=== PATIENT | female | born 1935 | race Caucasian/White ===

== ENCOUNTER 2017-04-15 07:35 | Inpatient (IN) | payer OTHER, MEDICARE ==
[~2017-04-15] VITALS: Ht 160 cm; Wt 82.4 kg
[~2017-04-15 07:35] MED LIST: ASPI325T PO; ATOR40TA16 PO; CYCL5TAB PO; GABA400C5 PO; MEDR4PAK PO; MOBI7.5T PO; OMEP20TA PO; PRAM0.12 PO; TRAZ100T4 PO; VENL75TA2 PO
[2017-04-15 07:42] VITALS: BP 145/71; PULSE 99; RESP 18; TEMP 103.1; O2SAT 96
--- NOTE | 2017-04-15 07:47 | PD ---
HPI Chief Complaint: fever, total body pain Time Seen by Provider: 07:46 Travel History International Travel<30 days: No Contact w/Intl Traveler<30days: No History of Present Illness HPI 81-year-old female arrives to the ER reported total body pain. The total body pain is constant however it became worse overnight. Fever was measured upon the patient's arrival to the ER. She denies vomiting. She denies cough. Her is present in the room however cannot provide additional information at the time of patient's arrival. In this scenario the initial history somewhat limited due to patient discomfort with or without altered mentation due to infection and/or and/or metabolic abnormality and/or polypharmacy. PFSH Past Medical History Arthritis: Yes Asthma: No Atrial Fibrillation: Yes Autoimmune Disease: Yes (fibromyalgia ) Blood Disorders: No Anxiety: Yes Depression: Yes Heart Rhythm Problems: Yes (AFIB) Cancer: No Cardiovascular Problems: Yes High Cholesterol: No Chemotherapy: No Chest Pain: Yes Congestive Heart Failure: No COPD: Yes Cerebrovascular Accident: No Diabetes: Yes Diminished Hearing: No Deep Vein Thrombosis: Yes Endocrine: No Fibromyalgia: Yes Gastrointestinal Disorders: Yes GERD: Yes Glaucoma: No Genitourinary: No Headaches: Yes Hepatitis: No Hiatal Hernia: No Hypertension: No Immune Disorder: No Kidney Stones: No Musculoskeletal: Yes Neurologic: Yes Psychiatric: No Reproductive: No Respiratory: Yes Immunizations Current: Yes Migraines: Yes Myocardial Infarction: No Radiation Therapy: No Renal Failure: No Seizures: No Sickle Cell Disease: No Sleep Apnea: No Thyroid Disease: No Ulcer: No PNEUMOCCOCAL Vaccine (Year): 1 Menopausal: Yes Past Surgical History Abdominal Surgery: Yes (MAGALY) AICD: No Appendectomy: Yes Arteriovenous Shunt: No Body Medical Devices: YIN FILTER Cardiac Surgery: Yes (YIN FILTER) Cholecystectomy: Yes Ear Surgery: No Endocrine Surgery: No Eye Surgery: No Genitourinary Surgery: No Gynecologic Surgery: Yes (HYSTERECTOMY) Hysterectomy: Yes Insulin Pump: No Joint Replacement: No Neurologic Surgery: No Oral Surgery: No Pacemaker: No Thoracic Surgery: No Tonsillectomy: Yes Other Surgery: Yes (yin filter inserted) Social History Alcohol Use: No Tobacco Use: No Substance Use: No Allergies-Medications (Allergen,Severity, Reaction): Coded Allergies: tramadol (Unverified Adverse Reaction, Intermediate, nausea, 8/15/17) Reported Meds & Prescriptions Reported Meds & Active Scripts Active Flexeril (Cyclobenzaprine HCl) 5 Mg Tab 5 Mg PO Q12HR PRN Reported Mobic (Meloxicam) 7.5 Mg Tab 7.5 Mg PO BID Aspirin 325 Mg Tab 325 Mg PO DAILY Venlafaxine ER 24 HR (Venlafaxine HCl) 75 Mg Tab 75 Mg PO BID Atorvastatin (Atorvastatin Calcium) 40 Mg Tab 40 Mg PO HS Omeprazole 20 Mg Tab 20 Mg PO BID Gabapentin 400 Mg Cap 400 Cap PO TID Review of Systems ROS Limitations: Clinical Condition Physical Exam Narrative GENERAL: 81 yo F, mild distress 2/2 pain and or anxiety, WNWD, speaking in sentences SKIN: Warm and dry. HEAD: Atraumatic. Normocephalic. EYES: Pupils equal and round. No scleral icterus. No injection or drainage. ENT: No nasal bleeding or discharge. Mucous membranes pink and moist. NECK: Trachea midline. No JVD. CARDIOVASCULAR: Tachycardia. Regular rhythm. RESPIRATORY: Mild tachypnea. Course breath sounds. GASTROINTESTINAL: Abdomen soft, non-tender, nondistended. Hepatic and splenic margins not palpable. MUSCULOSKELETAL: Extremities without clubbing, cyanosis, or edema. No obvious deformities. NEUROLOGICAL: Awake and alert. No obvious cranial nerve deficits. Motor grossly within normal limits. Five out of 5 muscle strength in the arms and legs. Normal speech. PSYCHIATRIC: Mildly anxious. Appropriate seasonal attire. Data Data Last Documented VS Vital Signs Date Time Temp Pulse Resp B/P (MAP) Pulse Ox O2 Delivery O2 Flow Rate FiO2 04/15/17 07:50 93 Nasal Cannula 2.00 04/15/17 07:50 22 04/15/17 07:50 04/15/17 07:42 103.1 99 VS reviewed Orders Orders Electrocardiogram (04/15/17 07:50) Complete Blood Count With Diff (04/15/17 07:50) Comprehensive Metabolic Panel (04/15/17 07:50) Prothrombin Time / Inr (Pt) (04/15/17 07:50) Act Partial Throm Time (Ptt) (04/15/17 07:50) Lactic Acid Sepsis Protocol (04/15/17 07:50) Magnesium (Mg) (04/15/17 07:50) Lipase (04/15/17 07:50) Ckmb (Isoenzyme) Profile (04/15/17 07:50) Troponin I (04/15/17 07:50) Urinalysis - C+S If Indicated (04/15/17 07:50) Blood Culture (04/15/17 07:50) Chest, Single Ap (04/15/17 07:50) Blood Glucose (04/15/17 07:50) Ecg Monitoring (04/15/17 07:50) Iv Access Insert/Monitor (04/15/17 07:50) Oximetry (04/15/17 07:50) Oxygen Administration (04/15/17 07:50) Acetaminophen (Tylenol) (04/15/17 08:00) Hydromorphone Pf Inj (Dilaudid Pf Inj) (04/15/17 08:00) Vancomycin Inj (Vancomycin Inj) (04/15/17 07:50) Cefepime Inj (Maxipime Inj) (04/15/17 07:50) Sodium Chlor 0.9% 1000 Ml Inj (Ns 1000 M (04/15/17 07:50) Sodium Chlor 0.9% 1000 Ml Inj (Ns 1000 M (04/15/17 07:50) Sodium Chlor 0.9% 1000 Ml Inj (Ns 1000 M (04/15/17 07:50) CKMB (04/15/17 08:05) CKMB% (04/15/17 08:05) Cath For Specimen (04/15/17 08:46) Admit Order (Ed Use Only) (04/15/17 09:35) Labs Laboratory Tests Test 04/15/17 08:00 04/15/17 08:05 Urine Collection Type CATH Urine Color YELLOW Urine Turbidity CLEAR Urine pH 5.5 Urine Specific [place] 1.013 Urine Protein NEG mg/dL Urine Glucose (UA) NEG mg/dL Urine Ketones NEG mg/dL Urine Occult Blood TRACE Urine Nitrite NEG Urine Bilirubin NEG Urine Leukocyte Esterase NEG Urine RBC 0-3 /hpf Urine Renal Epithelial Cells 0-5 /hpf Microscopic Urinalysis Comment CATH-CULT NOT IND Urine Collection Time 08:00 White Blood Count 10.1 TH/MM3 Red Blood Count 4.18 MIL/MM3 Hemoglobin 10.8 GM/DL Hematocrit 33.9 % Mean Corpuscular Volume 81.2 FL Mean Corpuscular Hemoglobin 25.9 PG Mean Corpuscular Hemoglobin Concent 31.9 % Red Cell Distribution Width 14.7 % Platelet Count 230 TH/MM3 Mean Platelet Volume 7.7 FL Neutrophils (%) (Auto) 74.9 % Lymphocytes (%) (Auto) 16.6 % Monocytes (%) (Auto) 5.3 % Eosinophils (%) (Auto) 2.6 % Basophils (%) (Auto) 0.6 % Neutrophils # (Auto) 7.5 TH/MM3 Lymphocytes # (Auto) 1.7 TH/MM3 Monocytes # (Auto) 0.5 TH/MM3 Eosinophils # (Auto) 0.3 TH/MM3 Basophils # (Auto) 0.1 TH/MM3 CBC Comment DIFF FINAL Differential Comment Prothrombin Time 11.6 SEC Prothromb Time International Ratio 1.0 RATIO Activated Partial Thromboplast Time 22.9 SEC Blood Urea Nitrogen 14 MG/DL Creatinine 0.82 MG/DL Random Glucose 167 MG/DL Total Protein 6.8 GM/DL Albumin 3.2 GM/DL Calcium Level 8.7 MG/DL Magnesium Level 1.4 MG/DL Alkaline Phosphatase 118 U/L Aspartate Amino Transf (AST/SGOT) 35 U/L Alanine Aminotransferase (ALT/SGPT) 27 U/L Total Bilirubin 0.3 MG/DL Sodium Level 137 MEQ/L Potassium Level 4.0 MEQ/L Chloride Level 100 MEQ/L Carbon Dioxide Level 29.2 MEQ/L Anion Gap 8 MEQ/L Estimat Glomerular Filtration Rate 67 ML/MIN Lactic Acid Level 2.8 mmol/L Total Creatine Kinase 122 U/L Creatine Kinase MB LESS THAN 0.5 NG/ML Troponin I 0.02 NG/ML Lipase 61 U/L MDM Medical Decision Making Medical Screen Exam Complete: Yes Emergency Medical Condition: Yes Medical Record Reviewed: Yes Differential Diagnosis Sepsis, UTI, PNA, severe sepsis, MODS, chronic pain Narrative Course CBC & BMP Diagram 04/15/17 08:05 Total Protein 6.8, Albumin 3.2 L, Calcium Level 8.7, Magnesium Level 1.4 L, Alkaline Phosphatase 118 H, Aspartate Amino Transf (AST/SGOT) 35, Alanine Aminotransferase (ALT/SGPT) 27, Total Bilirubin 0.3 LA 2.8 Tn 0.02 Lipase normal EKG: sinus, rate 94, normal axis, AL interval 221 Last 24 hours Impressions Chest X-Ray 04/15/17 0750 Signed Impressions: Service Date/Time: Saturday, April 15, 2017 07:54 - CONCLUSION: Development of course and bronchovascular markings right lung base consistent with infiltrate Hugo Baldwin MD Cefepime and vancomycin started. The patient has a pneumonia. She meets severe sepsis criteria. Case d/w Dr Conte for [facility]. Pt notified of plan for admission and is agreeable with it. Sepsis Criteria SIRS Criteria (2 or more): Temp > 100.9 or < 96.8, Heart rate over 90 Sepsis Criteria (SIRS+source): Infect source susp/known Severe Sepsis (+one): Lactate >2 Diagnosis Primary Impression: Severe sepsis Additional Impressions: Pneumonia Qualified Codes: J18.9 - Pneumonia, unspecified organism Chronic pain Qualified Codes: G89.29 - Other chronic pain Admitting Information Admitting Physician Requests: Admit Filiberto Mejia MD Apr 15, 2017 07:47
[2017-04-15 07:50] VITALS: O2SAT 93
[2017-04-15] MEDS ORDERED: SODIUM CHLOR 0.9% 1000 ML INJ 400 ML IV ONE (07:50)
[2017-04-15] MEDS ORDERED: CEFEPIME INJ 2,000 MG in SODIUM CHLORIDE 0.9% INJ 100 ML IV STA (07:50)
[2017-04-15] MEDS ORDERED: VANCOMYCIN INJ 1,500 MG in SODIUM CHLORID 0.9% 500 ML INJ 500 ML IV STA (07:50)
[2017-04-15] MEDS ORDERED: SODIUM CHLOR 0.9% 1000 ML INJ 1,000 ML IV ONE ×2 (07:50)
[2017-04-15] MEDS ORDERED: ACETAMINOPHEN 325 MG TAB PO ONE (08:00)
[2017-04-15] MEDS ORDERED: HYDROmorphone HCL PF 1 MG/ML VIAL IV ONE (08:00)
[2017-04-15 08:25] LABS: AUTOMATED NEUTROPHIL # 7.5 TH/MM3 (1.8-7.7); BASOPHIL # 0.1 TH/MM3 (0-0.2); BASOPHIL % 0.6 % (0.0-2.0); EOSINOPHIL # 0.3 TH/MM3 (0-0.4); EOSINOPHIL % 2.6 % (0.0-4.0); HEMATOCRIT 33.9 % (35.0-46.0); HEMO FLAGS DIFF FINAL; LYMPH % 16.6 % (9.0-44.0); LYMPHOCYTE # 1.7 TH/MM3 (1.0-4.8); MEAN CELL VOLUME 81.2 FL (80.0-100.0); MEAN CORPUSCULAR HEMOGLOBIN 25.9 PG (27.0-34.0); MEAN CORPUSCULAR HGB CONC 31.9 % (32.0-36.0); MONO % 5.3 % (0.0-8.0); NEUT % 74.9 % (16.0-70.0); PLATELET COUNT 230 TH/MM3 (150-450); RED BLOOD COUNT 4.18 MIL/MM3 (4.00-5.30); RED CELL DISTRIBUTION WIDTH 14.7 % (11.6-17.2); WHITE BLOOD COUNT 10.1 TH/MM3 (4.0-11.0)
--- NOTE | 2017-04-15 08:27 | RADRPT ---
EXAM DATE/TIME: 04/15/2017 07:54 [facility] COMPARISON: CHEST SINGLE AP, October 28, 2015, 17:17. INDICATIONS : Short of breath. MEDICAL HISTORY : Chronic obstructive pulmonary disease. Diabetes mellitus type II. SURGICAL HISTORY : None. ENCOUNTER: Initial ACUITY: 1 day PAIN SCORE: 0/10 LOCATION: Bilateral chest FINDINGS: There is atherosclerotic unwinding of the aorta and left ventricular cardiomegaly. Nodular density le ft upper lobe is unchanged. Patient has developed a coarsening of bronchovascular markings in the rig ht lung base consistent with infiltrate CONCLUSION: Development of course and bronchovascular markings right lung base consistent with infiltrate Hugo Baldwin MD on April 15, 2017 at 8:24 Board Certified Radiologist. This report was verified electronically.
[2017-04-15 08:29] LABS: CHLORIDE 100 MEQ/L (98-107); SODIUM (NA) 137 MEQ/L (136-145)
[2017-04-15 08:33] LABS: ANION GAP 8 MEQ/L (5-15); APTT (PATIENT) 22.9 SEC (24.3-30.1); BICARBONATE 29.2 MEQ/L (21.0-32.0); BLOOD UREA NITROGEN 14 MG/DL (7-18); MAGNESIUM 1.4 MG/DL (1.5-2.5); PROTHROMBIN TIME - PATIENT 11.6 SEC (9.8-11.6)
[2017-04-15 08:36] LABS: ALT (GPT) 27 U/L (10-53); AST (GOT) 35 U/L (15-37); GLOMERULAR FILTRATION RATE 67 ML/MIN (>89)
[2017-04-15 08:37] LABS: TOTAL BILIRUBIN ADULT 0.3 MG/DL (0.2-1.0)
[2017-04-15 08:39] LABS: ALKALINE PHOSPHATASE 118 U/L (45-117); CREATINE KINASE 122 U/L (26-192)
[2017-04-15 08:51] LABS: CKMB LESS THAN 0.5 NG/ML (0.5-3.6)
[2017-04-15 09:01] LABS: BLOOD, URINE TRACE (NEG); GLUCOSE,URINE NEG (NEG); KETONE, URINE NEG (NEG); NITRITE,URINE NEG (NEG); PH, URINE 5.5 (5.0-8.5)
[2017-04-15 09:10] LABS: METHOD OF COLLECTION CATH; URINE COLOR YELLOW (YELLW/STRAW)
[2017-04-15 09:11] LABS: COMMENT (UR) CATH-CULT NOT IND; CULTURE IF INDICATED CATH CULTURE NOT IND; RBC, URINE 0-3 /hpf (0-3); RENAL EPITHELIAL CELLS 0-5 /hpf
[2017-04-15] MEDS ORDERED: MAGNESIUM HYDROXIDE SUSP 30 ML CUP PO PRN (10:00)
[2017-04-15] MEDS ORDERED: SODIUM CHLORIDE 0.9% FLUSH 10 ML FLUSH IV FLUSH PRN (10:00)
[2017-04-15] MEDS ORDERED: ONDANSETRON HCL 4 MG/2 ML VIAL IVP PRN (10:00)
[2017-04-15] MEDS ORDERED: LACTULOSE SYRUP 20 GM/30 ML CUP PO PRN (10:00)
[2017-04-15] MEDS ORDERED: NALOXONE HCL 0.4 MG/ML AMP IV PRN (10:00)
[2017-04-15] MEDS ORDERED: BISACODYL 10 MG SUPP RECTAL PRN (10:00)
[2017-04-15] MEDS ORDERED: SENNOSIDES 8.6 MG TAB PO PRN (10:00)
[2017-04-15 10:16] LABS: LACTIC ACID GHOST NOT REPORTABLE
[2017-04-15 10:45] VITALS: BP 102/56; PULSE 95; RESP 18; TEMP 100; O2SAT 95
[2017-04-15 10:49] LABS: BLOOD GAS BASE EXCESS 0.7 mmol/L (-2-2); BLOOD GAS CARBOXYHEMOGLOBIN 1.5 % (0-4); BLOOD GAS HCO3 25 mmol/L (22-26); BLOOD GAS O2 HGB SATURATION 93 % (90-100); BLOOD GAS OXYGEN CONTENT 12.5 Vol % (12.0-20.0); BLOOD GAS PCO2 40 mmHG (38-42); BLOOD GAS PO2 76 mmHG (61-120); BLOOD GAS TOTAL HGB 9.5 G/DL (12.0-16.0); CRITICAL VALUE NO; DRAW SITE RT RADIAL; FIO2 21 %; NUMBER OF ARTERIAL PUNCTURES 1; OXYGEN DEVICE ROOM AIR; STAT NO; TEMP CORR TO 98.6; ULNAR PULSE PRESENT
[2017-04-15] MEDS ORDERED: HEPARIN SODIUM - SQ 10,000 UNITS/ML VIAL SQ SCH (11:00)
[2017-04-15] MEDS: SODIUM CHLOR 0.9% 1000 ML INJ 1,000 ML IV SCH ×2 (11:59→19:48)
[2017-04-15] MEDS: AZITHROMYCIN INJ 500 MG in SODIUM CHLOR 0.9% 250 ML INJ 250 ML IV SCH (12:00)
[2017-04-15] MEDS: cefTRIAXone INJ 1,000 MG in SODIUM CHLORIDE 0.9% INJ 100 ML IV SCH (13:14)
[2017-04-15 13:49] VITALS: BP 119/58; PULSE 76; RESP 16; TEMP 99; O2SAT 94
[2017-04-15] MEDS ORDERED: TRAZ100T6 PO (14:24)
[2017-04-15] MEDS ORDERED: ROPI0.25 PO (14:24)
[2017-04-15] MEDS ORDERED: PRAM0.12 PO (14:24)
[2017-04-15] MEDS ORDERED: LEVO75TA3 PO (14:24)
--- NOTE | 2017-04-15 17:14 | HHI.HP ---
[facility] Service [facility] Primary Care Physician Unknown Admission Diagnosis Severe Sepsis From PNA Diagnoses: (1) Severe sepsis Diagnosis: Principal (2) Pneumonia Diagnosis: Principal (3) Diarrhea Diagnosis: Principal (4) Hypomagnesemia Diagnosis: Principal (5) Thrush Diagnosis: Principal (6) Chronic pain Diagnosis: Principal Chief Complaint: "sick about a week" Travel History International Travel<30 Days: No Contact w/Intl Traveler <30 Da: No Traveled to Known Affected Are: No Sepsis Criteria SIRS Criteria (2 or more): Temp > 100.9 or < 96.8, Heart rate over 90, RR > 20 or PaCO2 < 32 Sepsis Criteria (SIRS+source): Infect source susp/known Severe Sepsis (+one): Lactate >2 Criteria Outcome: Meets severe sepsis criteria History of Present Illness Written by Alethea Sidhu PA-C acting as scribe for Dr. Conte on 04/15/17 at ~ 1640. 81-year-old female with history of A. 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 She admits to a nonproductive cough, shortness of breath, abdominal pain, diarrhea which all started one week ago. She believes all started when she visited her son who is sick in the hospital. She states both of her legs have been hurting. She additionally states she has had intermittent choking spells stating she could not eat. She denies any nausea or vomiting. She states she's had 2-3 episodes of diarrhea per day. Denies any blood in the stool. She denies any fevers. She states she did not take any of her medications for 3 days. Somewhat of a poor historian. Patient has a [place] filter but cannot tell me why she could not have anticoagulation, but EMR indicates she has history of GI bleed. Patient sees Dr. Adames, gas distribution and emergency clerk. Review of Systems ROS Limitations: Clinical Condition, Poor Historian Except as stated in HPI: all other systems reviewed are Neg Past Family Social History Past Medical History Atrial fibrillation Multiple DVTs and pulmonary emboli Diet controlled Diabetes COPD GERD/PUD Hypothyroidism Fibromyalgia RLS Depression Past Surgical History AV federico ablation 2011 Colonoscopy showing diverticulosis of the sigmoid colon, internal hemorrhoids EGD revealing severe gastritis with ulceration 08/20/11 RLL biopsy normal pathology 2009 Cardiac catheterization with normal coronaries 2009 IVC filter placement 2002 Cholecystectomy Appendectomy Hysterectomy Tonsillectomy Reported Medications Reported Ropinirole 0.25 Mg Tab 0.25 Mg PO HS Levothyroxine (Levothyroxine Sodium) 75 Mcg Tab 75 Mcg PO DAILY Trazodone (Trazodone HCl) 100 Mg Tablet 100 Mg PO HS Pramipexole (Pramipexole Dihydrochloride) 0.125 Mg Tab 0.125 Mg PO BID Aspirin 325 Mg Tab 325 Mg PO DAILY Venlafaxine ER 24 HR (Venlafaxine HCl) 75 Mg Tab 75 Mg PO BID Atorvastatin (Atorvastatin Calcium) 40 Mg Tab 40 Mg PO HS Omeprazole 20 Mg Tab 20 Mg PO BID Gabapentin 400 Mg Cap 400 Cap PO TID Allergies: Coded Allergies: tramadol (Unverified Adverse Reaction, Intermediate, nausea, 04/05/17) Family History Mother and father of "heart" and stroke per patient. Social History Lives with who still works. Denies alcohol use. Denies tobacco use. Denies illicit drug use. Physical Exam Vital Signs Vital Signs Date Time Temp Pulse Resp B/P (MAP) Pulse Ox O2 Delivery O2 Flow Rate FiO2 04/15/17 15:15 04/15/17 13:49 99.0 76 16 119/58 (78) 94 Room Air 04/15/17 10:45 100.0 95 18 102/56 (71) 95 Room Air 04/15/17 07:50 93 Nasal Cannula 2.00 04/15/17 07:50 22 04/15/17 07:50 93 04/15/17 07:42 103.1 99 18 145/71 (95) 96 Room Air Physical Exam GENERAL: This is a well-nourished, well-developed patient appears in moderate discomfort sticking her legs off the bed. SKIN: No rashes, ecchymoses or lesions. Warm and dry. HEAD: Atraumatic. Normocephalic. EYES: No scleral icterus. No injection or drainage. ENT: Uvula midline. Airway patent. Thrush evident. NECK: Trachea midline. CARDIOVASCULAR: Regular rate and rhythm without murmurs, gallops, or rubs. RESPIRATORY: Clear to auscultation. Breath sounds equal bilaterally. No wheezes , rales, or rhonchi. GASTROINTESTINAL: Abdomen soft, non-tender, nondistended. MUSCULOSKELETAL: Tender over both lower legs. No obvious edema noted. NEUROLOGICAL: Awake and alert. Five out of 5 muscle strength in upper and lower and lower extremities. Normal speech. Laboratory Laboratory Tests Test 04/15/17 08:00 04/15/17 08:05 04/15/17 09:46 04/15/17 10:35 Urine Collection Type CATH Urine Color YELLOW Urine Turbidity CLEAR Urine pH 5.5 Urine Specific [place] 1.013 Urine Protein NEG Urine Glucose (UA) NEG Urine Ketones NEG Urine Occult Blood TRACE Urine Nitrite NEG Urine Bilirubin NEG Urine Leukocyte Esterase NEG Urine RBC 0-3 Urine Renal Epithelial Cells 0-5 Microscopic Urinalysis Comment CATH-CULT NOT IND Urine Collection Time 08:00 White Blood Count 10.1 Red Blood Count 4.18 Hemoglobin 10.8 Hematocrit 33.9 Mean Corpuscular Volume 81.2 Mean Corpuscular Hemoglobin 25.9 Mean Corpuscular Hemoglobin Concent 31.9 Red Cell Distribution Width 14.7 Platelet Count 230 Mean Platelet Volume 7.7 Neutrophils (%) (Auto) 74.9 Lymphocytes (%) (Auto) 16.6 Monocytes (%) (Auto) 5.3 Eosinophils (%) (Auto) 2.6 Basophils (%) (Auto) 0.6 Neutrophils # (Auto) 7.5 Lymphocytes # (Auto) 1.7 Monocytes # (Auto) 0.5 Eosinophils # (Auto) 0.3 Basophils # (Auto) 0.1 CBC Comment DIFF FINAL Differential Comment Prothrombin Time 11.6 Prothromb Time International Ratio 1.0 Activated Partial Thromboplast Time 22.9 Blood Urea Nitrogen 14 Creatinine 0.82 Random Glucose 167 Total Protein 6.8 Albumin 3.2 Calcium Level 8.7 Magnesium Level 1.4 Alkaline Phosphatase 118 Aspartate Amino Transf (AST/SGOT) 35 Alanine Aminotransferase (ALT/SGPT) 27 Total Bilirubin 0.3 Sodium Level 137 Potassium Level 4.0 Chloride Level 100 Carbon Dioxide Level 29.2 Anion Gap 8 Estimat Glomerular Filtration Rate 67 Lactic Acid Level 2.8 1.8 Total Creatine Kinase 122 Creatine Kinase MB LESS THAN 0.5 Troponin I 0.02 Lipase 61 B-Type Natriuretic Peptide 61 Test 04/15/17 10:40 Blood Gas Puncture Site RT RADIAL Blood Gas Patient Temperature 98.6 Blood Gas HCO3 25 Blood Gas Base Excess 0.7 Blood Gas Oxygen Saturation 93 Arterial Blood pH 7.41 Arterial Blood Partial Pressure CO2 40 Arterial Blood Partial Pressure O2 76 Arterial Blood Oxygen Content 12.5 Arterial Blood Carboxyhemoglobin 1.5 Arterial Blood Methemoglobin 1.0 Blood Gas Hemoglobin 9.5 Oxygen Delivery Device ROOM AIR Blood Gas Inspired Oxygen 21 Date/Time Source Procedure Growth Status 04/15/17 08:15 Blood Peripheral Aerobic Blood Culture Pending Received 04/15/17 08:15 Blood Peripheral Anaerobic Blood Culture Pending Received Result Diagram: 04/15/1705 04/15/17804 Imaging Last Impressions Chest X-Ray 04/15/17 075 Signed Impressions: Service Date/Time: Saturday, April 15, 2017 07:54 - CONCLUSION: Development of course and bronchovascular markings right lung base consistent with infiltrate MD Hugo Cevallos VTE Risk Assessment Caprini VTE Risk Assessment: Mod/High Risk (score >= 2) Caprini Risk Assessment Model Point Value = 1 Point Value = 2 Point Value = 3 Point Value = 5 Age 41-60 Minor surgery BMI > 25 kg/m2 Swollen legs Varicose veins or History of unexplained or recurrent spontaneous Oral contraceptives or hormone replacement Sepsis (< 1 month) Serious lung disease, including pneumonia (< 1 month) Abnormal pulmonary function Acute myocardial infarction Congestive heart failure (< 1 month) History of inflammatory bowel disease Medical patient at bed rest Age 61-74 Arthroscopic surgery Major open surgery (> 45 min) Laparoscopic surgery (> 45 min) Malignancy Confined to bed (> 72 hours) Immobilizing plaster cast Central venous access Age >= 75 History of VTE Family history of VTE Factor V Leiden Prothrombin [id number] Lupus anticoagulant Anticardiolipin antibodies Elevated serum homocysteine Heparin-induced thrombocytopenia Other congenital or acquired thrombophilia Stroke (< 1 month) Elective arthroplasty Hip, pelvis, or leg fracture Acute spinal cord injury (< 1 month) Prophylaxis Regimen Total Risk Factor Score Risk Level Prophylaxis Regimen 0-1 Low Early ambulation 2 Moderate Order ONE of the following: *Sequential Compression Device (SCD) *Heparin 5000 units SQ BID 3-4 Higher Order ONE of the following medications: *Heparin 5000 units SQ TID *Enoxaparin/Lovenox 40 mg SQ daily (WT < 150 kg, CrCl > 30 mL/min) *Enoxaparin/Lovenox 30 mg SQ daily (WT < 150 kg, CrCl > 10-29 mL/min) *Enoxaparin/Lovenox 30 mg SQ BID (WT < 150 kg, CrCl > 30 mL/min) AND/OR *Sequential Compression Device (SCD) 5 or more Highest Order ONE of the following medications: *Heparin 5000 units SQ TID (Preferred with Epidurals) *Enoxaparin/Lovenox 40 mg SQ daily (WT < 150 kg, CrCl > 30 mL/min) *Enoxaparin/Lovenox 30 mg SQ daily (WT < 150 kg, CrCl > 10-29 mL/min) *Enoxaparin/Lovenox 30 mg SQ BID (WT < 150 kg, CrCl > 30 mL/min) AND *Sequential Compression Device (SCD) Assessment and Plan Assessment and Plan 81-year-old female with: Severe sepsis: Temperature 103.1 degrees. Heart rate 99. Respiratory rate 22. Lactic acid 2.8-->1.8. Source of infection pneumonia. -Telemetry -Blood cultures 2 pending -Antibiotics. See below. -IV fluids Pneumonia: Patient admits to cough and shortness of breath for one week. Chest x -ray with infiltrate right lung base. Aside from low hemoglobin ABG normal. H/ o COPD. -Ceftriaxone 1 g IV every 24 hours -Azithromycin 500 mg IV every 24 hours -Duonebs as needed for wheezing/SOB -CTA ordered to evaluate for PE in light of SOB and history of VTE. Diarrhea: Could be due to withdrawal from medications as patient skipped her prescribed meds for 3 days. -C. diff -IVF -Monitor electrolytes Hypomagnesemia: 1.4. -IV Magnesium. -Monitor and replete as needed Thrush: Nystatin swish and swallow Chronic pain: Patient complains of bilateral lower leg pain which is chronic from RLS and body pain related to fibromyalgia. Continue home gabapentin. Other chronic medical problems include PUD/GERD, depression, HLD, hypothyroidism : Continue home meds. DVT prophylaxis: Heparin q8h. Discussed Condition With ED physician This note was transcribed by anne [Alethea Sidhu PA-C]. I, Dr. Garrett Conte personally performed the history, physical exam, and medical decision making; and confirmed the accuracy of the information in the transcribed note. Authenticated by Dr. Garrett Conte on 04/16/17 at 00:00. Physician Certification 2 Midnight Certification Type: Admission for Inpatient Services Order for Inpatient Services The services are ordered in accordance with Medicare regulations or non- Medicare payer requirements, as applicable. In the case of services not specified as inpatient-only, they are appropriately provided as inpatient services in accordance with the 2-midnight benchmark. Estimated LOS (days): 2 days is the estimated time the patient will need to remain in the hospital, assuming treatment plan goals are met and no additional complications. Post-Hospital Plan: Not yet determined Problem Qualifiers (1) Pneumonia: Qualified Codes: J18.9 - Pneumonia, unspecified organism (2) Chronic pain: Qualified Codes: G89.29 - Other chronic pain Alethea Sidhu Apr 15, 2017 17:14 Garrett Conte MD Apr 16, 2017 00:00
[2017-04-15] MEDS ORDERED: PILL SPLITTER OTHER PRN (17:45)
[2017-04-15] MEDS ORDERED: MAGNESIUM SULFATE 1 GM PREMIX 100 ML IV ONE (18:00)
[2017-04-15] MEDS ORDERED: GABAPENTIN 300 MG CAP PO SCH (18:00)
[2017-04-15] MEDS ORDERED: IOHEXOL 350 MG/ML 10 ML VIAL (for RAD DIAG) IVCONTRAST ONE (18:10)
--- NOTE | 2017-04-15 18:29 | RADRPT ---
EXAM DATE/TIME: 04/15/2017 18:01 [facility] COMPARISON: CTA CHEST W 3D RECON, August 15, 2011, 18:06. INDICATIONS : Fever. Sepsis. General weakness. IV CONTRAST: 75 cc Omnipaque 350 (iohexol) IV RADIATION DOSE: 16.49 CTDIvol (mGy) MEDICAL HISTORY : Chronic obstructive pulmonary disease. Gastroesophageal reflux disease. Deep venous thrombosis.Diabet es. SURGICAL HISTORY : Appendectomy. Cholecystectomy.Hysterectomy. ENCOUNTER: Initial ACUITY: 2 days PAIN SCALE: 0/10 LOCATION: chest TECHNIQUE: Volumetric scanning of the chest was performed using a pulmonary embolism protocol MIP images were re constructed. Using automated exposure control and adjustment of the mA and/or kV according to patien t size, radiation dose was kept as low as reasonably achievable to obtain optimal diagnostic quality images. DICOM format image data is available electronically for review and comparison. Follow-up recommendations for detected pulmonary nodules are based at a minimum on nodule size and pa tient risk factors according to Fleischner Society Guidelines. FINDINGS: PULMONARY ARTERIES: No filling defects are seen in the pulmonary arteries through the segmental level. LUNGS: Acute appearing patchy infiltrates seen in the right lung, fairly diffuse but mid and lower lung pred ominant. There is elongated 1 x 3 cm opacity of the left lung apex that is long-term stable, benign. PLEURAE: Very small left pleural effusion is present, new. No pneumothorax. MEDIASTINUM: No lymphadenopathy. Apparent left ventricular hypertrophy. There is coronary artery calcification. MUSCULOSKELETAL: Within normal limits for patient age. MISCELLANEOUS: The visualized upper abdominal organs demonstrate no acute abnormality. CONCLUSION: 1. Patchy pneumonia on the right. 2. Small left pleural effusion, nonspecific. 3. Unchanged elongated opacity of the left lung apex, benign. 4. Coronary artery calcification. 5. No pulmonary embolus. Watson Gruber MD on April 15, 2017 at 18:22 Board Certified Radiologist. This report was verified electronically.
[2017-04-15] MEDS: NYSTATIN SUSP 500,000 U/5 ML CUP SWISH-SWAL SCH ×2 (18:44→20:08)
[2017-04-15 18:45] VITALS: BP 127/78; PULSE 83; RESP 19; TEMP 98.3; O2SAT 96
[2017-04-15] MEDS ORDERED: RESP: ALBUTEROL 2.5 MG/IPRATROPIUM 0.5 MG NEB (PRN) NEB (19:00)
[2017-04-15 20:00] VITALS: BP 169/72; PULSE 88; RESP 20; TEMP 98.4; O2SAT 96
[2017-04-15] MEDS: PANTOPRAZOLE SOD 20 MG DELAYED RELEASE TAB PO SCH (20:08)
[2017-04-15] MEDS: VENLAFAXINE HCL XR 75 MG CAP PO SCH (20:08)
[2017-04-15] MEDS: SODIUM CHLORIDE 0.9% FLUSH 10 ML FLUSH IV FLUSH SCH (20:10)
[2017-04-15] MEDS: PRAMIPEXOLE DIHYDROCHLORIDE 0.25 MG TAB PO SCH (20:11)
[2017-04-15] MEDS ORDERED: traZODone HCL 100 MG TAB PO SCH (21:00)
[2017-04-15] MEDS ORDERED: ATORVASTATIN 40 MG TAB PO SCH (21:00)
[2017-04-15] MEDS: HEPARIN SODIUM - SQ 10,000 UNITS/ML VIAL SQ SCH (22:00)
[2017-04-16] VITALS: BP 175/83; PULSE 90; RESP 18; TEMP 99.1; O2SAT 96
[2017-04-16] MEDS ORDERED: ACETAMINOPHEN/HYDROcodone 325 MG/5 MG TAB PO ONE (01:00)
[2017-04-16 04:00] VITALS: BP 141/74; PULSE 86; RESP 18; TEMP 98.3; O2SAT 96
[2017-04-16] MEDS: SODIUM CHLOR 0.9% 1000 ML INJ 1,000 ML IV SCH (05:48)
[2017-04-16] MEDS ORDERED: LEVOTHYROXINE SODIUM 75 MCG TAB PO SCH (06:00)
[2017-04-16] MEDS: HEPARIN SODIUM - SQ 10,000 UNITS/ML VIAL SQ SCH ×2 (06:43→14:08)
[2017-04-16 08:00] VITALS: BP 139/82; PULSE 82; RESP 20; TEMP 97.9; O2SAT 96
[2017-04-16 08:47] LABS: AUTOMATED NEUTROPHIL # 6.2 TH/MM3 (1.8-7.7); BASOPHIL % 0.5 % (0.0-2.0); EOSINOPHIL # 0.1 TH/MM3 (0-0.4); EOSINOPHIL % 1.3 % (0.0-4.0); HEMATOCRIT 30.4 % (35.0-46.0); HEMO FLAGS DIFF FINAL; LYMPHOCYTE # 1.4 TH/MM3 (1.0-4.8); MEAN CELL VOLUME 80.3 FL (80.0-100.0); MEAN CORPUSCULAR HEMOGLOBIN 26.4 PG (27.0-34.0); MEAN CORPUSCULAR HGB CONC 32.9 % (32.0-36.0); MONO % 7.5 % (0.0-8.0); NEUT % 73.7 % (16.0-70.0); PLATELET COUNT 224 TH/MM3 (150-450); RED BLOOD COUNT 3.79 MIL/MM3 (4.00-5.30); RED CELL DISTRIBUTION WIDTH 14.2 % (11.6-17.2); WHITE BLOOD COUNT 8.3 TH/MM3 (4.0-11.0)
[2017-04-16 08:56] LABS: CHLORIDE 100 MEQ/L (98-107); POTASSIUM 3.3 MEQ/L (3.5-5.1); SODIUM (NA) 136 MEQ/L (136-145)
[2017-04-16 09:00] LABS: ANION GAP 9 MEQ/L (5-15); BICARBONATE 27.2 MEQ/L (21.0-32.0); BLOOD UREA NITROGEN 8 MG/DL (7-18)
[2017-04-16] MEDS: SODIUM CHLORIDE 0.9% FLUSH 10 ML FLUSH IV FLUSH SCH (09:00)
[2017-04-16] MEDS ORDERED: ASPIRIN 325 MG TAB PO SCH (09:00)
[2017-04-16] MEDS: PANTOPRAZOLE SOD 20 MG DELAYED RELEASE TAB PO SCH (09:00)
[2017-04-16] MEDS ORDERED: GABAPENTIN 400 MG CAP PO SCH (09:00)
[2017-04-16 09:03] LABS: ALT (GPT) 34 U/L (10-53); AST (GOT) 43 U/L (15-37); GLOMERULAR FILTRATION RATE 96 ML/MIN (>89)
[2017-04-16 09:05] LABS: TOTAL BILIRUBIN ADULT 0.5 MG/DL (0.2-1.0)
[2017-04-16 09:06] LABS: ALKALINE PHOSPHATASE 114 U/L (45-117)
[2017-04-16] MEDS: NYSTATIN SUSP 500,000 U/5 ML CUP SWISH-SWAL SCH ×2 (09:18→14:07)
[2017-04-16] MEDS: VENLAFAXINE HCL XR 75 MG CAP PO SCH (09:20)
[2017-04-16] MEDS: PRAMIPEXOLE DIHYDROCHLORIDE 0.25 MG TAB PO SCH (09:20)
[2017-04-16] MEDS: AZITHROMYCIN INJ 500 MG in SODIUM CHLOR 0.9% 250 ML INJ 250 ML IV SCH (09:31)
[2017-04-16 12:00] VITALS: BP 151/73; PULSE 74; RESP 18; TEMP 95.6; O2SAT 95
[2017-04-16] MEDS: cefTRIAXone INJ 1,000 MG in SODIUM CHLORIDE 0.9% INJ 100 ML IV SCH (14:07)
--- NOTE | 2017-04-16 14:47 | HHI.PR ---
Subjective Remarks Patient seen this morning around 10 AM. Says she is feeling better. Denies any chest pain or shortness of breath. Feels like going home. Objective Vital Signs Date Time Temp Pulse Resp B/P (MAP) Pulse Ox O2 Delivery O2 Flow Rate FiO2 04/16/17 08:00 97.9 82 20 139/82 (101) 96 04/16/17 04:00 98.3 86 18 141/74 (96) 96 04/16/17 00:00 99.1 90 18 175/83 (113) 96 04/15/17 20:00 98.4 88 20 169/72 (104) 96 04/15/17 18:45 98.3 83 19 127/78 (94) 96 04/15/17 15:15 I/O 04/15/17 04/15/17 04/15/17 04/16/17 04/16/17 04/16/17 06:59 14:59 22:59 06:59 14:59 22:59 Intake Total 3965 ml 120 ml 375 ml 2000 ml Balance 3965 ml 120 ml 375 ml 2000 ml Intake Oral 120 ml 375 ml IV Total 3965 ml 2000 ml Result Diagram: 04/16/17 0755 04/16/17 0755 Objective Remarks GENERAL: Patient sitting up in bed. Appears comfortable. SKIN: Warm and dry. HEAD: Normocephalic. EYES: No scleral icterus. No injection or drainage. NECK: Supple, trachea midline. No JVD. CARDIOVASCULAR: Regular rate and rhythm without murmurs, gallops, or rubs. RESPIRATORY: Breath sounds equal bilaterally. No accessory muscle use. GASTROINTESTINAL: Abdomen soft, non-tender, nondistended. MUSCULOSKELETAL: No cyanosis, or edema. BACK: Nontender without obvious deformity. No CVA tenderness. A/P Assessment and Plan =====04/16/17 Sepsis, pneumonia improving. No more tachycardia or fevers. Blood cultures negative Continue antibiotics. -CT reviewed. Negative for pulmonary embolism. Positive for pneumonia. Continue duo nebs. -No bowel movements to evaluate for C. difficile. Loose bowel movements could be secondary to stress. //Hypokalemia. Seems 3.3. Eczema at the blood lab 81-year-old female with: //Severe sepsis: Temperature 103.1 degrees. Heart rate 99. Respiratory rate 22. Lactic acid 2.8-->1.8. Source of infection pneumonia. -Telemetry -Blood cultures 2 pending -Antibiotics. See below. -IV fluids //Pneumonia: Patient admits to cough and shortness of breath for one week. Chest x-ray with infiltrate right lung base. Aside from low hemoglobin ABG normal. H/o COPD. -Ceftriaxone 1 g IV every 24 hours -Azithromycin 500 mg IV every 24 hours -Duonebs as needed for wheezing/SOB -CTA ordered to evaluate for PE in light of SOB and history of VTE. //Diarrhea: Could be due to withdrawal from medications as patient skipped her prescribed meds for 3 days. -C. diff -IVF -Monitor electrolytes Hypomagnesemia: 1.4. -IV Magnesium. -Monitor and replete as needed Thrush: Continue Nystatin swish and swallow Chronic pain: Patient complains of bilateral lower leg pain which is chronic from RLS and body pain related to fibromyalgia. Continue home gabapentin. Other chronic medical problems include PUD/GERD, depression, HLD, hypothyroidism : Continue home meds. DVT prophylaxis: Heparin q8h. Discharge Planning Follow-up PT recommendations. Possible discharge home this afternoon versus tomorrow morning Garrett Conte MD Apr 16, 2017 14:47
[2017-04-16] MEDS ORDERED: LEVO750T3 PO (14:49)
[2017-04-16] MEDS ORDERED: NYST1000 SWISH-SWAL (14:49)
--- NOTE | 2017-04-16 14:52 | HHI.FF ---
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 My clinical findings support the need for the requested home health care services because: Med compliance is questionable I certify that my clinical findings support that this patient is homebound because: Need for psychosocial assistance Garrett Conte MD Apr 16, 2017 14:52
[2017-04-16] MEDS ORDERED: MAGN400T2 PO (14:53)
[2017-04-16] MEDS ORDERED: POTASSIUM CHLORIDE 10 MEQ CONTROLLED RELEASE TAB PO ONE (15:00)
--- NOTE | 2017-04-16 18:57 | EKG ---
Date Performed: 04/15/2017 Time Performed: 08:09:39 PTAGE: 81 years EKG: Sinus rhythm WITH FIRST DEGREE AV BLOCK ABNORMAL ECG PREVIOUS TRACING : 08/11/2012 08.31 Compared to prior tracing no significant change DOCTOR: Eyal Flores Interpretating Date/Time 04/16/2017 18:55:28
== END 2017-04-16 15:57 | disposition home health service (06) | DRG 871 ==
LOC: PHED 07:35 → PHEDA 09:36 → PHEDH 13:23 → PH3B 15:15
PROVIDERS: ADMIT Internal Medicine; ATTEND Internal Medicine
DX: A41.9 Sepsis, unspecified organism (principal); J18.9 Pneumonia, unspecified organism; B37.0 Candidal stomatitis; E11.9 Type 2 diabetes mellitus without complications; D64.9 Anemia, unspecified; I48.91 Unspecified atrial fibrillation; J44.0 Chronic obstructive pulmonary disease with (acute) lower respiratory infection; E83.42 Hypomagnesemia; E03.9 Hypothyroidism, unspecified; E78.5 Hyperlipidemia, unspecified; E87.6 Hypokalemia; G25.81 Restless legs syndrome; G89.29 Other chronic pain; K21.9 Gastro-esophageal reflux disease without esophagitis; L30.9 Dermatitis, unspecified; M79.7 Fibromyalgia; R65.20 Severe sepsis without septic shock; Z86.711 Personal history of pulmonary embolism; Z87.11 Personal history of peptic ulcer disease
CPT/HCPCS: 36600; 71010; 71275; 80053; 81001; 82550; 82552; 82805; 82948; 83605; 83690; 83735; 83880; 84484; 85025; 85610; 85730; 87040; 93005; 96365; 96375; J0456; J0692; J0696; J1170; J1644; J3370; J3475; J7030; J7040; J7050; P9612; Q9967

== ENCOUNTER 2017-08-21 13:59 | Emergency (ER) | payer MEDICARE, OTHER ==
[~2017-08-21] VITALS: Ht 160 cm; Wt 80.0 kg
[~2017-08-21 13:59] MED LIST changes: +ASPI-183 PO; -ASPI325T PO; -CYCL5TAB PO; +LEVO750T3 PO; +LEVO75TA3 PO; +MAGN400T2 PO; -MEDR4PAK PO; -MOBI7.5T PO; +NYST1000 SWISH-SWAL; -OMEP20TA PO; +OMEP20TA93 PO; +ROPI0.25 PO; +TRAZ100T10 PO; -TRAZ100T4 PO
[2017-08-21 14:13] VITALS: BP 131/63; PULSE 83; RESP 16; TEMP 98.5; O2SAT 96
[2017-08-21] MEDS ORDERED: HYDR-3583 PO (14:35)
[2017-08-21] MEDS ORDERED: FERR325T18 PO (14:35)
--- NOTE | 2017-08-21 14:48 | PD ---
HPI Chief Complaint: Musculoskeletal Complaint Time Seen by Provider: 14:38 Travel History International Travel<30 days: No Contact w/Intl Traveler<30days: No Traveled to known affect area: No History of Present Illness HPI 82-year-old female presents to the emergency department for evaluation of left knee pain that started on , 5 days ago, without injury. She went to [place] after the pain started in the pain has worsened. She currently rates the pain 9/10, aching and sharp to the left medial knee. The patient denies any injury. Patient states that she had some left leg numbness before those repute orthopedist. Patient states she has a history DVT and is not currently on her Coumadin due to having a colonoscopy just recently. She states she is on Coumadin due to A. fib. Patient states the pain is worse with ambulation. She takes Lortab 3 times daily for pain. She only took one dose this morning. She reports associated nausea. She denies any chest pain or shortness of breath. No fevers or chills. No erythema or swelling. She reports no other medical complaints. Moderate severity. PFSH Past Medical History Arthritis: Yes Asthma: No Atrial Fibrillation: Yes Autoimmune Disease: Yes (fibromyalgia ) Blood Disorders: No Anxiety: Yes Depression: Yes Heart Rhythm Problems: Yes (AFIB) Cancer: No Cardiovascular Problems: Yes (AFIB) High Cholesterol: No Chemotherapy: No Chest Pain: Yes Congestive Heart Failure: No COPD: Yes Cerebrovascular Accident: No Diabetes: Yes Diminished Hearing: No Deep Vein Thrombosis: Yes Endocrine: No Fibromyalgia: Yes Gastrointestinal Disorders: Yes GERD: Yes Glaucoma: No Genitourinary: No Headaches: Yes Hepatitis: No Hiatal Hernia: No Heparin Induced Thrombocytopen: No Hypertension: No Immune Disorder: No Kidney Stones: No Musculoskeletal: Yes Neurologic: Yes Psychiatric: No Reproductive: No Respiratory: Yes Immunizations Current: Yes Migraines: Yes Myocardial Infarction: No Radiation Therapy: No Renal Failure: No Seizures: No Sickle Cell Disease: No Sleep Apnea: No Thyroid Disease: No Ulcer: No PNEUMOCCOCAL Vaccine (Year): 1 Menopausal: Yes Past Surgical History Abdominal Surgery: Yes (MAGALY) AICD: No Appendectomy: Yes Arteriovenous Shunt: No Body Medical Devices: YIN FILTER Cardiac Surgery: Yes (YIN FILTER) Cholecystectomy: Yes Ear Surgery: No Endocrine Surgery: No Eye Surgery: No Genitourinary Surgery: No Gynecologic Surgery: Yes (HYSTERECTOMY) Hysterectomy: Yes Insulin Pump: No Joint Replacement: No Neurologic Surgery: No Oral Surgery: No Pacemaker: No Thoracic Surgery: No Tonsillectomy: Yes Other Surgery: Yes (yin filter inserted) Social History Alcohol Use: No Tobacco Use: No Substance Use: No Allergies-Medications (Allergen,Severity, Reaction): Coded Allergies: tramadol (Unverified Adverse Reaction, Intermediate, nausea, 08/21/17) Reported Meds & Prescriptions Reported Meds & Active Scripts Active Reported Hydrocodone-Acetaminophen 10-325 mg Tab 1 Tab PO Q8HR PRN Ferrous Sulfate 325 Mg (65 Mg Iron) Tablet 325 Mg PO DAILY Ropinirole 0.25 Mg Tab 1 Mg PO HS Levothyroxine (Levothyroxine Sodium) 75 Mcg Tab 75 Mcg PO DAILY Trazodone (Trazodone HCl) 100 Mg Tablet 100 Mg PO HS Venlafaxine ER 24 HR (Venlafaxine HCl) 75 Mg Tab 75 Mg PO BID Atorvastatin (Atorvastatin Calcium) 40 Mg Tab 60 Mg PO HS Omeprazole 20 Mg Tab 20 Mg PO BID Gabapentin 400 Mg Cap 400 Cap PO BID Review of Systems Except as stated in HPI: all other systems reviewed are Neg Physical Exam Narrative GENERAL: Well-nourished, well-developed elderly female patient, afebrile. SKIN: Focused skin assessment warm/dry. No erythema or swelling of left calf or knee HEAD: Normocephalic. Atraumatic. EYES: No scleral icterus. No injection or drainage. NECK: Supple, trachea midline. No JVD or lymphadenopathy. CARDIOVASCULAR: Regular rate and rhythm without murmurs, gallops, or rubs. Left pedal pulse is 2+. RESPIRATORY: Breath sounds equal bilaterally. No accessory muscle use. Lungs sounds are clear to auscultation. GASTROINTESTINAL: Abdomen soft, non-tender, nondistended. MUSCULOSKELETAL: No cyanosis, or edema. Patient patient has a specific area over the left medial knee that is tender to palpation. Very mild tenderness over the left calf. Negative Homans sign. She has tenderness with flexion of the left knee, but has full flexion and extension of the left knee. BACK: Nontender without obvious deformity. No CVA tenderness. Data Data Last Documented VS Vital Signs Date Time Temp Pulse Resp B/P (MAP) Pulse Ox O2 Delivery O2 Flow Rate FiO2 08/21/17 16:25 86 16 114/61 (78) 95 08/21/17 14:13 98.5 Orders Orders Us Leg Venous Doppler (08/21/17 ) Knee, Complete (4vws) (08/21/17 ) Acetamin-Hydrocod 325-10 Mg ([place] 10-32 (08/21/17 15:00) Ondansetron Odt (Zofran Odt) (08/21/17 15:00) MDM Medical Decision Making Medical Screen Exam Complete: Yes Emergency Medical Condition: Yes Medical Record Reviewed: Yes Interpretation(s) Last Impressions Lower Extremity Ultrasound 08/21/17 0000 Signed Impressions: Service Date/Time: Monday, August 21, 2017 20:47 - CONCLUSION: Normal examination. David Pederson MD Knee X-Ray 08/21/17 0000 Signed Impressions: Service Date/Time: Monday, August 21, 2017 15:21 - CONCLUSION: Slight osteopenia. David Pederson MD Differential Diagnosis Knee sprain versus fracture versus contusion versus DVT Narrative Course 82-year-old female presents to the emergency department for evaluation of left knee pain that started without injury approximately 5 days ago. She does have history of DVT. Physical is not consistent with DVT, however, due to history, via stop her ultrasound left lower extremity is ordered and pending. X-ray left knee is ordered and pending. Patient is given a dose of Lortab 10/325 that she takes at home and Zofran 4 mg by mouth. X-ray of the left knee shows no acute bony injury. US is normal. Patient states she has a walker at home that she will use to help her walk. She is artery prescribed Lortab 10/325 mg for pain. She has any brace. She is instructed to follow-up with orthopedist for this continuing pain. She verbalizes agreement. She is return here for any acute worsening of symptoms. The patient was discharged in stable condition with instructions, including return instructions and follow up instructions. Diagnosis Primary Impression: Left knee pain Qualified Codes: M25.562 - Pain in left knee Referrals: Courtney Chua MD call for appointment Patient Instructions: General Instructions, Knee Pain (ED), Knee Sprain (ED) Additional Instructions: Rotate ice/heat Continue hydrocodone/acetaminophen as directed as needed for pain. Follow-up with orthopedist. Dr. Chua is our orthopedist on-call today. Return to the emergency department for any acute worsening of symptoms. Med/Other Pt SpecificInfo: No Change to Meds Disposition: 01 DISCHARGE HOME Condition: Stable Radha Harmon MOISES Aug 21, 2017 14:48
[2017-08-21] MEDS ORDERED: ONDANSETRON ODT 4 MG TAB PO ONE (15:00)
[2017-08-21] MEDS ORDERED: ACETAMINOPHEN/HYDROcodone 325 MG/10 MG TAB PO ONE (15:00)
--- NOTE | 2017-08-21 15:44 | RADRPT ---
EXAM DATE/TIME: 08/21/2017 15:21 [facility] COMPARISON: No previous studies available for comparison. INDICATIONS : Left knee pain, no known injury MEDICAL HISTORY : Diabetes mellitus type II. afib SURGICAL HISTORY : None. ENCOUNTER: Initial ACUITY: 3 days PAIN SCORE: 8/10 LOCATION: Left knee FINDINGS: No definite fractures, or dislocations are identified. No definite lytic or sclerotic lesion is seen . Slight osteopenia is seen. The joint spaces are well maintained. Tiny joint effusion is seen. CONCLUSION: Slight osteopenia. David Pederson MD on August 21, 2017 at 15:41 Board Certified Radiologist. This report was verified electronically.
--- NOTE | 2017-08-21 16:07 | RADRPT ---
EXAM DATE/TIME: 08/21/2017 20:47 [facility] COMPARISON: No previous studies available for comparison. INDICATIONS : Left leg pain. MEDICAL HISTORY : Chronic obstructive pulmonary disease. Gastroesophageal reflux disease. Deep venous thrombosis. Mi graines. Afib. Fibromyalgia. Arthritis. Diabetes. Depression. Anxiety. Pneumonia. SURGICAL HISTORY : Tonsillectomy. Appendectomy. Cholecystectomy. Hysterectomy. [place] filter. ENCOUNTER: Subsequent ACUITY: 1 day PAIN SCORE: 3/10 LOCATION: Left leg. TECHNIQUE: Venous ultrasound of the leg was performed from the inguinal ligament to the proximal calf. Real-kaz e, color Doppler and spectral tracing, compression and augmentation techniques were used. FINDINGS: There is normal compressibility of the deep venous system from the inguinal region to the proximal ca lf. No echogenic clot is seen in the lumen of the common femoral, femoral, popliteal, and posterior tibial veins. There is a normal response of the venous system to proximal and distal augmentation an d respiration. CONCLUSION: Normal examination. David Pederson MD on August 21, 2017 at 16:05 Board Certified Radiologist. This report was verified electronically.
[2017-08-21 16:25] VITALS: BP 114/61; PULSE 86; RESP 16; O2SAT 95
== END 2017-08-21 16:45 | disposition home or self-care (01) ==
LOC: PHEFT 13:59
DX: M25.562 Pain in left knee (principal); I48.91 Unspecified atrial fibrillation; M79.7 Fibromyalgia; F32.9 Major depressive disorder, single episode, unspecified; J44.9 Chronic obstructive pulmonary disease, unspecified; E11.9 Type 2 diabetes mellitus without complications; K21.9 Gastro-esophageal reflux disease without esophagitis; Z79.01 Long term (current) use of anticoagulants; Z86.718 Personal history of other venous thrombosis and embolism
CPT/HCPCS: 73564; 93971; 99284

== ENCOUNTER 2017-09-17 12:33 | Emergency (ER) | payer OTHER ==
[~2017-09-17] VITALS: Ht 160 cm; Wt 79.5 kg
[~2017-09-17 12:33] MED LIST changes: -ASPI-183 PO; +FERR325T18 PO; +HYDR-3583 PO; -LEVO750T3 PO; -MAGN400T2 PO; -NYST1000 SWISH-SWAL; -PRAM0.12 PO
[2017-09-17 12:36] VITALS: BP 130/64; PULSE 76; RESP 16; TEMP 98.4; O2SAT 97
--- NOTE | 2017-09-17 13:14 | PD ---
HPI . Leg pain Chief Complaint: Musculoskeletal Complaint Time Seen by Provider: 12:53 Travel History International Travel<30 days: No Contact w/Intl Traveler<30days: No Traveled to known affect area: No History of Present Illness HPI This patient presents with pain in her left leg which has been ongoing since . As an achy pain which she rates 8/10. She has not noted any modifying factors. She states that she has been seen by orthopedics and has had x-rays of her knee which show arthritis. She states that the orthopedist told her that she does have arthritis but she could have a blood clot since her whole leg hurts. He advised her to see her primary care physician for an ultrasound. She states that she saw her primary care physician but she cannot get an ultrasound done as an outpatient for another week. She subsequently presents here. She states that she takes 3 Lortabs a day for her arthritis. PFSH Past Medical History Arthritis: Yes Asthma: No Atrial Fibrillation: Yes Autoimmune Disease: Yes (fibromyalgia ) Blood Disorders: No Anxiety: Yes Depression: Yes Heart Rhythm Problems: Yes (AFIB) Cancer: No Cardiovascular Problems: Yes (AFIB) High Cholesterol: No Chemotherapy: No Chest Pain: Yes Congestive Heart Failure: No COPD: Yes Cerebrovascular Accident: No Diabetes: Yes Diminished Hearing: No Deep Vein Thrombosis: Yes Endocrine: No Fibromyalgia: Yes Gastrointestinal Disorders: Yes GERD: Yes Glaucoma: No Genitourinary: No Headaches: Yes Hepatitis: No Hiatal Hernia: No Heparin Induced Thrombocytopen: No Hypertension: No Immune Disorder: No Kidney Stones: No Musculoskeletal: Yes Neurologic: Yes Psychiatric: No Reproductive: No Respiratory: Yes Immunizations Current: Yes Migraines: Yes Myocardial Infarction: No Radiation Therapy: No Renal Failure: No Seizures: No Sickle Cell Disease: No Sleep Apnea: No Thyroid Disease: No Ulcer: No PNEUMOCCOCAL Vaccine (Year): 1 Menopausal: Yes Past Surgical History Abdominal Surgery: Yes (MAGALY) AICD: No Appendectomy: Yes Arteriovenous Shunt: No Body Medical Devices: YIN FILTER Cardiac Surgery: Yes (YIN FILTER) Cholecystectomy: Yes Ear Surgery: No Endocrine Surgery: No Eye Surgery: No Genitourinary Surgery: No Gynecologic Surgery: Yes (HYSTERECTOMY) Hysterectomy: Yes Insulin Pump: No Joint Replacement: No Neurologic Surgery: No Oral Surgery: No Pacemaker: No Thoracic Surgery: No Tonsillectomy: Yes Other Surgery: Yes (yin filter inserted) Social History Alcohol Use: No Tobacco Use: No Substance Use: No Allergies-Medications (Allergen,Severity, Reaction): Coded Allergies: tramadol (Unverified Adverse Reaction, Intermediate, nausea, 09/17/17) Reported Meds & Prescriptions Reported Meds & Active Scripts Active Reported Hydrocodone-Acetaminophen 10-325 mg Tab 1 Tab PO Q8HR PRN Ferrous Sulfate 325 Mg (65 Mg Iron) Tablet 325 Mg PO DAILY Ropinirole 0.25 Mg Tab 1 Mg PO HS Levothyroxine (Levothyroxine Sodium) 75 Mcg Tab 75 Mcg PO DAILY Trazodone (Trazodone HCl) 100 Mg Tablet 100 Mg PO HS Venlafaxine ER 24 HR (Venlafaxine HCl) 75 Mg Tab 75 Mg PO BID Atorvastatin (Atorvastatin Calcium) 40 Mg Tab 60 Mg PO HS Omeprazole 20 Mg Tab 20 Mg PO BID Gabapentin 400 Mg Cap 400 Cap PO BID Review of Systems Except as stated in HPI: all other systems reviewed are Neg Musculoskeletal: Positive: Myalgias, Arthralgias Physical Exam Narrative GENERAL: Awake and alert and in no acute distress. SKIN: Warm and dry. Normal color and skin temperature. HEAD: Normocephalic/atraumatic. EYES: Pupils are equal. Extraocular movements are intact. Distally NECK: Normal range of motion. CARDIOVASCULAR: Regular rate and rhythm. RESPIRATORY: Nonlabored respirations. MUSCULOSKELETAL: Atraumatic. Palpation of her left thigh "feels good." Palpation of her left calf is tender. There is no swelling. NEUROLOGICAL: Nonfocal. PSYCHIATRIC: Appropriate mood and affect. Data Data Last Documented VS Vital Signs Date Time Temp Pulse Resp B/P (MAP) Pulse Ox O2 Delivery O2 Flow Rate FiO2 09/17/17 12:36 98.4 76 16 130/64 (86) 97 Orders Orders Us Leg Venous Doppler (09/17/17 12:54) [facility] Medical Decision Making Medical Screen Exam Complete: Yes Emergency Medical Condition: Yes Medical Record Reviewed: Yes (this patient had an ultrasound done here on 09/21 which was negative for DVT) Differential Diagnosis Differential diagnosis of leg pain includes but is not limited to lumbar radiculopathy, arthritis, myalgias, DVT, ruptured Chambers's cyst. Narrative Course This patient presents for an ultrasound because of left lower extremity pain which has been ongoing since . She has seen orthopedics as an outpatient and has been diagnosed with arthritis in her knee. The orthopedist suggested that she be evaluated for possible DVT as her entire left lower extremity hurts. Ultrasound is pending. Last Impressions Lower Extremity Ultrasound 09/17/17 3244 Signed Impressions: Service Date/Time: Tuesday, September 17, 2017 15:20 - CONCLUSION: 1. No evidence of left lower extremity DVT. 2. 3 x 1.5 x 3 cm complex cystic mass in the popliteal fossa with no internal color Doppler flow. May represent Chambers's cyst. Seth Velasco MD Diagnosis Primary Impression: Leg pain Qualified Codes: M79.605 - Pain in left leg Additional Impression: Chambers's cyst Qualified Codes: M71.22 - Synovial cyst of popliteal space [Chambers], left knee Patient Instructions: Bakers Cyst (DC), General Instructions, Leg Pain (ED) Additional Instructions: Follow-up with your doctor for ongoing pain management Disposition: 01 DISCHARGE HOME Condition: Stable Bernice Shearer MD Sep 17, 2017 13:14
--- NOTE | 2017-09-17 16:09 | RADRPT ---
EXAM DATE/TIME: 09/17/2017 15:20 [facility] COMPARISON: US LEG LEFT VENOUS DOPPLER, August 21, 2017, 20:47. INDICATIONS : Left leg pain. MEDICAL HISTORY : Chronic obstructive pulmonary disease. Gastroesophageal reflux disease. Deep venous thrombosis. Mi graines. Afib. Fibromyalgia. Arthritis. Diabetes. Depression. Anxiety. Pneumonia. SURGICAL HISTORY : Tonsillectomy. Appendectomy. Cholecystectomy. Hysterectomy. [place] filter. ENCOUNTER: Subsequent ACUITY: 1 month PAIN SCORE: 4/10 LOCATION: Left leg. TECHNIQUE: Venous ultrasound of the leg was performed from the inguinal ligament to the proximal calf. Real-kaz e, color Doppler and spectral tracing, compression and augmentation techniques were used. FINDINGS: There is normal compressibility of the deep venous system from the inguinal region to the proximal ca lf. No echogenic clot is seen in the lumen of the common femoral, femoral, popliteal, and posterior tibial veins. There is a normal response of the venous system to proximal and distal augmentation an d respiration. CONCLUSION: 1. No evidence of left lower extremity DVT. 2. 3 x 1.5 x 3 cm complex cystic mass in the popliteal fossa with no internal color Doppler flow. May represent Chambers's cyst. Seth Velasco MD on September 17, 2017 at 16:04 Board Certified Radiologist. This report was verified electronically.
== END 2017-09-17 17:06 | disposition home or self-care (01) ==
LOC: NEPD 12:33
DX: M79.605 Pain in left leg (principal); M71.22 Synovial cyst of popliteal space [Baker], left knee; I48.91 Unspecified atrial fibrillation; M79.7 Fibromyalgia; K21.9 Gastro-esophageal reflux disease without esophagitis
CPT/HCPCS: 93971; 99284

== ENCOUNTER 2017-10-06 22:43 | Emergency (ER) | payer OTHER ==
[~2017-10-06] VITALS: Ht 160 cm; Wt 79.0 kg
[2017-10-06 22:48] VITALS: BP 178/82; PULSE 72; RESP 18; TEMP 98.2; O2SAT 99
[2017-10-06] MEDS ORDERED: ONDANSETRON HCL 4 MG/2 ML VIAL IVP ONE (23:15)
[2017-10-06] MEDS ORDERED: SODIUM CHLORIDE 0.9% FLUSH 10 ML FLUSH IVF PRN (23:15)
--- NOTE | 2017-10-06 23:41 | RADRPT ---
EXAM DATE/TIME: 10/06/2017 23:24 [facility] COMPARISON: CHEST SINGLE AP, October 28, 2015, 17:17. CT PULMONARY ANGIOGRAM, April 15, 2017, 18:01. CHEST SINGL E AP, April 15, 2017, 7:54. INDICATIONS : Dizziness, increased blood pressure for 2 days MEDICAL HISTORY : Chronic obstructive pulmonary disease. Diabetes mellitus type II. SURGICAL HISTORY : None. ENCOUNTER: Initial ACUITY: 2 days PAIN SCORE: 0/10 LOCATION: Bilateral chest FINDINGS: Left upper lobe somewhat triangular-shaped density is present could be scar versus developing mass. T he rest of the lungs are clear except for scattered areas of linear scar. Heart and mediastinum are u nremarkable for technique. CONCLUSION: Left apical density possible scar versus developing mass present on the older studies going back to 2 016 not significantly changed and therefore most likely scar. David Pederson MD on October 06, 2017 at 23:37 Board Certified Radiologist. This report was verified electronically.
[2017-10-06 23:44] VITALS: BP 157/72; PULSE 64; RESP 20; O2SAT 94
[2017-10-06 23:48] LABS: AUTOMATED NEUTROPHIL # 2.9 TH/MM3 (1.8-7.7); BASOPHIL % 0.8 % (0.0-2.0); EOSINOPHIL # 0.1 TH/MM3 (0-0.4); EOSINOPHIL % 2.5 % (0.0-4.0); HEMATOCRIT 33.8 % (35.0-46.0); HEMOGLOBIN 11.4 GM/DL (11.6-15.3); LYMPH % 35.6 % (9.0-44.0); LYMPHOCYTE # 1.9 TH/MM3 (1.0-4.8); MEAN CELL VOLUME 81.9 FL (80.0-100.0); MEAN CORPUSCULAR HEMOGLOBIN 27.6 PG (27.0-34.0); MEAN CORPUSCULAR HGB CONC 33.7 % (32.0-36.0); MEAN PLATELET VOLUME 7.1 FL (7.0-11.0); MONO % 7.2 % (0.0-8.0); MONOCYTE # 0.4 TH/MM3 (0-0.9); NEUT % 53.9 % (16.0-70.0); PLATELET COUNT 278 TH/MM3 (150-450); RED BLOOD COUNT 4.12 MIL/MM3 (4.00-5.30); RED CELL DISTRIBUTION WIDTH 13.8 % (11.6-17.2); WHITE BLOOD COUNT 5.3 TH/MM3 (4.0-11.0)
[2017-10-06 23:52] VITALS: BP 157/72; PULSE 65; RESP 20; O2SAT 96
[2017-10-06 23:57] LABS: CHLORIDE 102 MEQ/L (98-107); SODIUM (NA) 138 MEQ/L (136-145)
[2017-10-07] MEDS ORDERED: oxyCODONE/ACETAMINOPHEN 5 MG/325 MG TAB PO ONE
[2017-10-07 00:01] LABS: ALBUMIN 3.6 GM/DL (3.4-5.0); CALCIUM 8.4 MG/DL (8.5-10.1); GLUCOSE,RANDOM 131 MG/DL (74-106); MAGNESIUM 1.7 MG/DL (1.5-2.5)
[2017-10-07 00:02] LABS: BLOOD UREA NITROGEN 9 MG/DL (7-18)
[2017-10-07 00:03] LABS: INTERNATIONAL NORMALIZED RATIO 1.2 RATIO; PROTHROMBIN TIME - PATIENT 11.8 SEC (9.8-11.6)
[2017-10-07 00:04] LABS: ALT (GPT) 20 U/L (10-53); AST (GOT) 18 U/L (15-37); CREATININE 0.81 MG/DL (0.50-1.00); GLOMERULAR FILTRATION RATE 68 ML/MIN (>89)
[2017-10-07 00:06] LABS: TOTAL BILIRUBIN ADULT 0.4 MG/DL (0.2-1.0)
[2017-10-07 00:07] LABS: ALKALINE PHOSPHATASE 126 U/L (45-117)
[2017-10-07 00:09] LABS: TROPONIN I LESS THAN 0.02 NG/ML (0.02-0.05)
[2017-10-07 00:10] VITALS: BP 158/70; PULSE 65; RESP 20; O2SAT 98
--- NOTE | 2017-10-07 00:42 | RADRPT ---
EXAM DATE/TIME: 10/07/2017 00:23 [facility] COMPARISON: No previous studies available for comparison. INDICATIONS : Headaches with dizziness. RADIATION DOSE: 57.32 CTDIvol (mGy) MEDICAL HISTORY : Cardiovascular disease. Hypertension. Diabetes mellitus type 2.COPD DVT SURGICAL HISTORY : Appendectomy. Cholecystectomy.Hysterectomy. ENCOUNTER: Initial ACUITY: 1 day PAIN SCALE: 10/10 LOCATION: cranial TECHNIQUE: Multiple contiguous axial images were obtained of the head. Using automated exposure control and adj ustment of the mA and/or kV according to patient size, radiation dose was kept as low as reasonably a chievable to obtain optimal diagnostic quality images. DICOM format image data is available electro nically for review and comparison. FINDINGS: There is no evidence for intracranial hemorrhage, mass effect, mass lesions, or edema. The visualize d bony structures appear intact. Slight degree of brain atrophy is seen. Slight periventricular whit e matter changes are seen nonspecific mostly consistent with chronic small vessel ischemic changes. There are no signs of acute infarction for technique. CONCLUSION: Slight atrophic and small vessel ischemic changes without any evidence for acute hemorrhage or mass effect. David Pederson MD on October 07, 2017 at 0:38 Board Certified Radiologist. This report was verified electronically.
[2017-10-07] MEDS ORDERED: POTASSIUM CHLORIDE 20 MEQ CONTROLLED RELEASE TAB PO ONE (01:00)
[2017-10-07] MEDS ORDERED: ONDANSETRON HCL 4 MG/2 ML VIAL IV PUSH ONE (01:00)
[2017-10-07 01:24] LABS: BILIRUBIN, URINE NEG (NEG); BLOOD, URINE NEG (NEG); GLUCOSE,URINE NEG (NEG); KETONE, URINE NEG (NEG); NITRITE,URINE NEG (NEG); URINE LEUKOCYTE ESTERASE TRACE (NEG)
[2017-10-07 01:29] LABS: URINE COLOR YELLOW (YELLW/STRAW)
[2017-10-07 01:30] LABS: RBC, URINE 0-3 /hpf (0-3); SQUAMOUS EPITHELIAL CELL URINE 0-5 /hpf (0-5)
[2017-10-07] MEDS ORDERED: cefTRIAXone INJ 1,000 MG in SODIUM CHLORIDE 0.9% INJ 100 ML IV ONE (01:45)
[2017-10-07] MEDS ORDERED: ZOFR4TAB3 SL (01:48)
[2017-10-07] MEDS ORDERED: MACR100C2 PO (01:48)
[2017-10-07] MEDS ORDERED: MECL-62 PO (01:50)
--- NOTE | 2017-10-07 01:50 | PD ---
HPI Chief Complaint: GI Complaint Time Seen by Provider: 23:12 Travel History International Travel<30 days: No Contact w/Intl Traveler<30days: No Traveled to known affect area: No History of Present Illness HPI 82-year-old female presents to the emergency department by private transportation for evaluation of dizziness and nausea. Patient has been symptomatic for 2 days. Patient denies headache visual disturbance fever sore throat earache cough congestion chest pain shortness of breath refer neck job back shoulder arm and scapular abdominal pain. Patient denies vomiting patient states she tried to attempt self-induced vomiting but was unsuccessful. No hematemesis no coffee-ground emesis no melena hematochezia. Patient's had no diarrhea or constipation. Patient has not had flank pain but some urinary frequency without hematuria. Patient denies any fall or injury rash. Patient denies any other extremity pain or swelling. Patient has prior history of DVT with Yin filter. Patient does not report any myalgias or arthralgias fever or chills. Patient has extensive past medical history including [facility] Past Medical History Narrative Medical Chronic pain syndrome, restless leg, fibromyalgia, PE, DVT, Yin filter, anemia, hypothyroidism, anxiety depression, cholecystectomy, atrial fibrillation , COPD, diabetes, migraine, appendectomy, hysterectomy; no tobacco use no alcohol use; nursing notes reviewed Arthritis: Yes Asthma: No Atrial Fibrillation: Yes Autoimmune Disease: Yes (fibromyalgia ) Blood Disorders: No Anxiety: Yes Depression: Yes Heart Rhythm Problems: Yes (AFIB) Cancer: No Cardiovascular Problems: Yes (afib) High Cholesterol: No Chemotherapy: No Chest Pain: Yes Congestive Heart Failure: No COPD: Yes Cerebrovascular Accident: No Diabetes: Yes (type two) Patient Takes Glucophage: Yes Diminished Hearing: No Deep Vein Thrombosis: Yes Endocrine: No Fibromyalgia: Yes Gastrointestinal Disorders: Yes GERD: Yes Glaucoma: No Genitourinary: No Headaches: Yes Hepatitis: No Hiatal Hernia: No Heparin Induced Thrombocytopen: No Hypertension: No Immune Disorder: No Kidney Stones: No Medical other: Yes Musculoskeletal: Yes Neurologic: Yes Psychiatric: No Reproductive: No Respiratory: Yes (COPD) Immunizations Current: Yes Migraines: Yes Myocardial Infarction: No Radiation Therapy: No Renal Failure: No Seizures: No Sickle Cell Disease: No Sleep Apnea: No Thyroid Disease: No Ulcer: No Tetanus Vaccination: > 5 Years PNEUMOCCOCAL Vaccine (Year): 1 Menopausal: Yes Past Surgical History Abdominal Surgery: Yes (MAGALY) AICD: No Appendectomy: Yes Arteriovenous Shunt: No Body Medical Devices: YIN FILTER Cardiac Surgery: Yes (YIN FILTER) Cholecystectomy: Yes Ear Surgery: No Endocrine Surgery: No Eye Surgery: No Genitourinary Surgery: No Gynecologic Surgery: Yes (HYSTERECTOMY) Hysterectomy: Yes Insulin Pump: No Joint Replacement: No Neurologic Surgery: No Oral Surgery: No Pacemaker: No Thoracic Surgery: No Tonsillectomy: Yes Other Surgery: Yes (yin filter inserted) Social History Alcohol Use: No Tobacco Use: No Substance Use: No Allergies-Medications (Allergen,Severity, Reaction): Coded Allergies: tramadol (Unverified Adverse Reaction, Intermediate, nausea, 10/06/17) Reported Meds & Prescriptions Reported Meds & Active Scripts Active Meclizine (Meclizine HCl) 25 Mg Tab 25 Mg PO Q6HR PRN Macrobid (Nitrofurantoin Monoh/Nitrofur Macro) 100 Mg Cap 100 Mg PO BID 7 Days Zofran Odt (Ondansetron Odt) 4 Mg Tab 4 Mg SL Q6HR PRN Reported Hydrocodone-Acetaminophen 10-325 mg Tab 1 Tab PO Q8HR PRN Ferrous Sulfate 325 Mg (65 Mg Iron) Tablet 325 Mg PO DAILY Ropinirole 0.25 Mg Tab 1 Mg PO HS Levothyroxine (Levothyroxine Sodium) 75 Mcg Tab 75 Mcg PO DAILY Trazodone (Trazodone HCl) 100 Mg Tablet 100 Mg PO HS Venlafaxine ER 24 HR (Venlafaxine HCl) 75 Mg Tab 75 Mg PO BID Atorvastatin (Atorvastatin Calcium) 40 Mg Tab 60 Mg PO HS Omeprazole 20 Mg Tab 20 Mg PO BID Gabapentin 400 Mg Cap 400 Cap PO BID Review of Systems Except as stated in HPI: all other systems reviewed are Neg Physical Exam Narrative GENERAL: Well-developed well nourished female in no acute distress or respiratory distress SKIN: Warm and dry. HEAD: Atraumatic. Normocephalic. EYES: Pupils equal and round. No scleral icterus. No injection or drainage. ENT: No nasal bleeding or discharge. Mucous membranes pink and moist. NECK: Trachea midline. No JVD. CARDIOVASCULAR: Regular rate and rhythm. RESPIRATORY: No accessory muscle use. Clear to auscultation. Breath sounds equal bilaterally. GASTROINTESTINAL: Abdomen soft, non-tender, nondistended. Hepatic and splenic margins not palpable. MUSCULOSKELETAL: Extremities without clubbing, cyanosis, or edema. No obvious deformities. NEUROLOGICAL: Awake and alert. No obvious cranial nerve deficits. Motor grossly within normal limits. Five out of 5 muscle strength in the arms and legs. Normal speech. PSYCHIATRIC: Appropriate mood and affect; insight and judgment normal. Data Data Last Documented VS Vital Signs Date Time Temp Pulse Resp B/P (MAP) Pulse Ox O2 Delivery O2 Flow Rate FiO2 10/06/17 23:52 65 20 157/72 (100) 96 10/06/17 22:48 98.2 Orders Orders Electrocardiogram (10/06/17 23:12) Complete Blood Count With Diff (10/06/17 23:12) Comprehensive Metabolic Panel (10/06/17 23:12) Magnesium (Mg) (10/06/17 23:12) Ckmb (Isoenzyme) Profile (10/06/17 23:12) Troponin I (10/06/17 23:12) Act Partial Throm Time (Ptt) (10/06/17 23:12) Prothrombin Time / Inr (Pt) (10/06/17 23:12) Urinalysis - C+S If Indicated (10/06/17 23:12) Chest, Single Ap (10/06/17 23:12) Ct Brain W/O Iv Contrast(Rout) (10/06/17 23:12) Ecg Monitoring (10/06/17 23:12) Iv Access Insert/Monitor (10/06/17 23:12) Oximetry (10/06/17 23:12) Ondansetron Inj (Zofran Inj) (10/06/17 23:15) Sodium Chloride 0.9% Flush (Ns Flush) (10/06/17 23:15) Oxycodone-Acetamin 5-325 Mg (Percocet (10/07/17 00:00) CKMB (10/06/17 23:40) CKMB% (10/06/17 23:40) Ondansetron Inj (Zofran Inj) (10/07/17 01:00) Potassium Chloride (Kcl) (10/07/17 01:00) Urine Culture (10/07/17 01:10) Ceftriaxone Inj (Rocephin Inj) (10/07/17 01:45) Ed Discharge Order (10/07/17 01:50) Labs Laboratory Tests Test 10/06/17 23:40 10/07/17 01:10 White Blood Count 5.3 TH/MM3 Red Blood Count 4.12 MIL/MM3 Hemoglobin 11.4 GM/DL Hematocrit 33.8 % Mean Corpuscular Volume 81.9 FL Mean Corpuscular Hemoglobin 27.6 PG Mean Corpuscular Hemoglobin Concent 33.7 % Red Cell Distribution Width 13.8 % Platelet Count 278 TH/MM3 Mean Platelet Volume 7.1 FL Neutrophils (%) (Auto) 53.9 % Lymphocytes (%) (Auto) 35.6 % Monocytes (%) (Auto) 7.2 % Eosinophils (%) (Auto) 2.5 % Basophils (%) (Auto) 0.8 % Neutrophils # (Auto) 2.9 TH/MM3 Lymphocytes # (Auto) 1.9 TH/MM3 Monocytes # (Auto) 0.4 TH/MM3 Eosinophils # (Auto) 0.1 TH/MM3 Basophils # (Auto) 0.0 TH/MM3 CBC Comment DIFF FINAL Differential Comment Prothrombin Time 11.8 SEC Prothromb Time International Ratio 1.2 RATIO Activated Partial Thromboplast Time 25.2 SEC Blood Urea Nitrogen 9 MG/DL Creatinine 0.81 MG/DL Random Glucose 131 MG/DL Total Protein 7.0 GM/DL Albumin 3.6 GM/DL Calcium Level 8.4 MG/DL Magnesium Level 1.7 MG/DL Alkaline Phosphatase 126 U/L Aspartate Amino Transf (AST/SGOT) 18 U/L Alanine Aminotransferase (ALT/SGPT) 20 U/L Total Bilirubin 0.4 MG/DL Sodium Level 138 MEQ/L Potassium Level 3.3 MEQ/L Chloride Level 102 MEQ/L Carbon Dioxide Level 30.0 MEQ/L Anion Gap 6 MEQ/L Estimat Glomerular Filtration Rate 68 ML/MIN Total Creatine Kinase 183 U/L Creatine Kinase MB 2.0 NG/ML Troponin I LESS THAN 0.02 NG/ML Urine Color YELLOW Urine Turbidity CLEAR Urine pH 6.0 Urine Specific [place] 1.020 Urine Protein NEG mg/dL Urine Glucose (UA) NEG mg/dL Urine Ketones NEG mg/dL Urine Occult Blood NEG Urine Nitrite NEG Urine Bilirubin NEG Urine Leukocyte Esterase TRACE Urine RBC 0-3 /hpf Urine WBC 9-14 /hpf Urine Squamous Epithelial Cells 0-5 /hpf Urine Bacteria NONE /hpf Microscopic Urinalysis Comment CULTURE INDICATED [facility] Medical Decision Making Medical Screen Exam Complete: Yes Emergency Medical Condition: Yes Medical Record Reviewed: Yes Interpretation(s) EKG: Normal sinus rhythm rate 65 first-degree AV block no acute ST elevation or injury pattern artifact is present urinalysis positive white blood cells culture indicated Troponin I less than 0.02, not elevated Last Impressions Head CT 10/06/172 Signed Impressions: Service Date/Time: Saturday, October 07, 2017 00:23 - CONCLUSION: Slight atrophic and small vessel ischemic changes without any evidence for acute hemorrhage or mass effect. David Pederson MD Chest X-Ray 10/06/172311 Signed Impressions: Service Date/Time: September 23:24 - CONCLUSION: Left apical density possible scar versus developing mass present on the older studies going back to 2016 not significantly changed and therefore most likely scar. David Pederson MD CBC & BMP Diagram 10/06/17 23:40 Total Protein 7.0, Albumin 3.6, Calcium Level 8.4 L, Magnesium Level 1.7, Alkaline Phosphatase 126 H, Aspartate Amino Transf (AST/SGOT) 18, Alanine Aminotransferase (ALT/SGPT) 20, Total Bilirubin 0.4 Vital Signs Date Time Temp Pulse Resp B/P (MAP) Pulse Ox O2 Delivery O2 Flow Rate FiO2 10/06/17 23:52 65 20 157/72 (100) 96 10/06/17 23:48 20 10/06/17 23:44 64 20 157/72 (100) 94 10/06/17 22:48 98.2 72 18 178/82 (114) 99 Differential Diagnosis Generalized weakness, viral syndrome, UTI, pneumonia, ACS, ID, electrolyte disturbance, arrhythmia, dehydration, gastroenteritis, biliary colic Narrative Course Patient placed on registered nurse cardiac with continuous pulse oximetry IV access obtained specimens collected and sent for resulting EKG sinus rhythm no acute injury pattern change cardiac enzymes are found to be in normal range CBC with automated differential values are within normal limits and metabolic panel is remarkable for mild hypokalemia patient given oral replacement of potassium Patient requesting additional dose of Zofran was provided Urinalysis shows leukocyte esterase and white blood cells cultures indicated patient given first dose of antibiotic in the emergency department Rocephin 1 g IV piggyback Patient aware of imaging results and lab results and is stable for outpatient management CT brain noncontrast reveals no acute injury pattern chronic small vessel ischemic changes noted and chest x-ray identifies stable scar tissue Diagnosis Primary Impression: Dizziness Additional Impressions: UTI (urinary tract infection) Hypokalemia Referrals: Primary Care Physician 2 days Patient Instructions: General Instructions, Narcotic given in the ED Additional Instructions: Increase fluid hydration Follow-up with your primary care provider Follow clear liquid diet for the next 12-24 hours advance as tolerated to bland/ brat diet and regular diet Complete course of antibiotic as prescribed Use meclizine as prescribed as needed for dizziness Takes Zofran as prescribed as needed for nausea and vomiting Monitor temperature every 4 hours with the Motrin take acetaminophen/Tylenol every 4 hours for fever 100.4F or greater for minor discomfort Return to the emergency department for any concerns or change in condition Add potassium containing foods and beverages to dietary intake Med/Other Pt SpecificInfo: Prescription(s) given Scripts Meclizine (Meclizine) 25 Mg Tab 25 MG PO Q6HR Y for VERTIGO, #12 TAB 0 Refills Prov: Sujatha Messina MD 10/07/17 Nitrofurantoin Monohydrate Macrocrystals (Macrobid) 100 Mg Cap 100 MG PO BID for Infection for 7 Days, #14 CAP 0 Refills Prov: Sujatha Messina MD 10/07/17 Ondansetron Odt (Zofran Odt) 4 Mg Tab 4 MG SL Q6HR Y for Nausea/Vomiting, #12 TAB 0 Refills Prov: Sujatha Messina MD 10/07/17 Disposition: 01 DISCHARGE HOME Condition: Stable Sujatha Messina MD Oct 07, 2017 01:50
[2017-10-07 02:00] VITALS: BP 131/57; PULSE 66; RESP 20; O2SAT 98
[2017-10-07 03:33] VITALS: BP 131/65
--- NOTE | 2017-10-08 00:06 | EKG ---
Date Performed: 10/06/2017 Time Performed: 23:17:54 PTAGE: 82 years EKG: Sinus rhythm WITH FIRST DEGREE AV BLOCK WITH OCCASIONAL SUPRAVENTRICULAR PREMATURE COMPLEXES ABNORMAL ECG PREVIOUS TRACING : 04/15/2017 08.09 Since the prior tracing, there has been no significant barriga DOCTOR: Eyal Flores Interpretating Date/Time 10/08/2017 00:06:02
== END 2017-10-07 03:48 | disposition home or self-care (01) ==
LOC: PHED 22:43
DX: R42 Dizziness and giddiness (principal); N39.0 Urinary tract infection, site not specified; E87.6 Hypokalemia; I44.0 Atrioventricular block, first degree; I10 Essential (primary) hypertension; I25.10 Atherosclerotic heart disease of native coronary artery without angina pectoris; I48.91 Unspecified atrial fibrillation; J44.9 Chronic obstructive pulmonary disease, unspecified; E03.9 Hypothyroidism, unspecified; E11.9 Type 2 diabetes mellitus without complications; M79.7 Fibromyalgia; F41.9 Anxiety disorder, unspecified; F32.9 Major depressive disorder, single episode, unspecified; Z86.718 Personal history of other venous thrombosis and embolism; Z88.8 Allergy status to other drugs, medicaments and biological substances; Z79.899 Other long term (current) drug therapy
CPT/HCPCS: 70450; 71045; 80053; 81001; 82550; 82552; 83735; 84484; 85025; 85610; 85730; 87086; 93005; 96374; 96375; 96376; 99285; J0696; J2405